=== PATIENT | female | born 1955 ===

== ENCOUNTER 2018-06-19 09:33 | Day surgery (SDC) | payer OTHER ==
[~2018-06-19] VITALS: Ht 154.9 cm; Wt 84.4 kg
[~2018-06-19 09:33] MED LIST: Amitriptyline H25 MG PO; CHOL10002 PO; Lovastatin10 MG PO; METF500C PO; Nexium40 MG PO; PRAV20 PO; Prilosec Otc20 MG PO
[2018-06-19] MEDS ORDERED: Aspirin EC81 MG PO (10:23)
[2018-06-19] MEDS ORDERED: LISI20 PO (10:25)
[2018-06-19] MEDS ORDERED: GLIM4 PO (10:25)
[2018-06-19] MEDS ORDERED: Metformin HCl750 MG PO (10:26)
[2018-06-19] MEDS ORDERED: TRULICITY1.5 MG/0.5 SC (10:27)
[2018-06-19] MEDS ORDERED: AMIT50 PO (10:27)
[2018-06-19] MEDS ORDERED: Pravachol40 MG PO (10:28)
== END 2018-06-19 11:40 | disposition home or self-care (01) ==
LOC: ORSCSDS 09:33
PROVIDERS: Internal Medicine Gastroenterology
PROC: 0DJ08ZZ Inspection of Upper Intestinal Tract, Via Natural or Artificial Opening Endoscopic (ICD-10-PCS; principal; 2018-06-19 10:30)
DX: R07.89 Other chest pain (principal); K21.9 Gastro-esophageal reflux disease without esophagitis; R13.10 Dysphagia, unspecified; G47.33 Obstructive sleep apnea (adult) (pediatric); I10 Essential (primary) hypertension; E11.9 Type 2 diabetes mellitus without complications; E78.5 Hyperlipidemia, unspecified; F32.9 Major depressive disorder, single episode, unspecified; E66.9 Obesity, unspecified; Z68.35 Body mass index [BMI] 35.0-35.9, adult; Z79.84 Long term (current) use of oral hypoglycemic drugs; Z79.899 Other long term (current) drug therapy; R11.2 Nausea with vomiting, unspecified
CPT/HCPCS: 82947